=== PATIENT | female | born 1955 | race Caucasian/White ===

== ENCOUNTER 2022-09-27 16:41 | Emergency (ER) | payer BC ==
[~2022-09-27] VITALS: Ht 160 cm; Wt 63.5 kg
[2022-09-27 16:45] VITALS: BP_SYST 140
[2022-09-27 18:41] LABS: BASOPHILS % (AUTO) 0.4 % (0.0-2.0); EOSINOPHILS % (AUTO) 0.1 % (0.0-4.0); HEMATOCRIT 38.9 % (36-48); HEMOGLOBIN 13.1 g/dL (12.0-16.0); LYMPHOCYTES % (AUTO) 24.8 % (20.5-51.5); MEAN CORPUSCULAR HEMOGLOBIN 30 pg (27-31); MEAN CORPUSCULAR HGB CONC 34 % (32-36); MEAN CORPUSCULAR VOLUME 89 fL (79.0-98.0); MONOCYTES # (AUTO) 0.6 K/uL (0.0-1.0); NEUTROPHILS # (AUTO) 5.4 K/uL (1.8-7.7); NEUTROPHILS % (AUTO) 67.7 % (40.0-70.0); PLATELET COUNT (AUTO) 206 K/uL (130-430); RED CELL DISTRIBUTION WIDTH 14.3 % (9.0-15.0)
[2022-09-27 19:01] LABS: ALBUMIN 3.5 g/dL (3.4-4.8); CALCIUM 8.7 mg/dL (8.4-11.0); CREATININE 0.85 mg/dL (0.55-1.30); TOTAL BILIRUBIN 0.5 mg/dL (0.0-1.0)
[2022-09-27 19:29] VITALS: BP_SYST 136
[2022-09-27] MEDS ORDERED: NACL 0.9% 1,000 ML IV ONE ×2 (20:45→22:00)
== END 2022-09-28 04:02 | disposition home or self-care (01) ==
LOC: SED 16:41
DX: E87.1 Hypo-osmolality and hyponatremia (principal); R53.1 Weakness; R42 Dizziness and giddiness; I10 Essential (primary) hypertension; Z79.899 Other long term (current) drug therapy; Z20.822 Contact with and (suspected) exposure to COVID-19
CPT/HCPCS: 99284; 96360; 87426; 80053; 85025; 36415; 93005; 87804 ×2; J7030